=== PATIENT | female | born 1995 | race Caucasian/White ===

== ENCOUNTER 2022-11-23 10:16 | Emergency (ER) | payer OTHER, SELFPAY ==
--- NOTE | ~2022-11-23 | CT_ITS ---
EXAMINATION: CT lumbar spine wo con DATE: 11/23/2022 12:52 INDICATION: Sciatica with left lower limb pain TECHNIQUE: Computed tomography (CT) of the lumbar spine was performed without intravenous contrast. A utomated exposure control and iterative reconstruction technique were employed. The dose-length produ ct was 279.52 mGy-cm. COMPARISON: None FINDINGS: 7 degrees lumbar levocurvature. Sagittal alignment is normal. Vertebral body and disc heights are nor mal. No fractures. Disc heights are normal. Paravertebral soft tissues are unremarkable. 2 cm left ov kavitha cyst/dominant follicle. The following disc levels are specifically discussed: T11-T12: The disc does not extend beyond the endplate margin. There is mild bilateral facet joint ost eoarthritis. There is no neural foraminal stenosis. There is no central canal stenosis. T12-L1: The disc does not extend beyond the endplate margin. There is minimal bilateral facet joint o steoarthritis. There is no neural foraminal stenosis. There is no central canal stenosis. L1-L2: The disc does not extend beyond the endplate margin. There is mild bilateral facet joint osteo arthritis. There is no neural foraminal stenosis. There is no central canal stenosis. L2-L3: Disc is mildly bulging. There is mild left and minimal right facet joint osteoarthritis. There is no neural foraminal stenosis. There is no central canal stenosis. L3-L4: Disc is mildly bulging. There is mild bilateral facet joint osteoarthritis. There is mild bila teral neural foraminal stenosis. There is minimal central canal stenosis. L4-L5: Disc is bulging. There is mild to moderate bilateral facet joint osteoarthritis. There is mild to moderate bilateral neural foraminal stenosis. There is mild central canal stenosis. L5-S1: Disc is mildly bulging. There is mild to moderate bilateral facet joint osteoarthritis. There is mild left neural foraminal stenosis. There is no central canal stenosis. IMPRESSION: 1. Minimal to mild lumbar spondylosis. Reviewed, dictated and finalized at location A.
--- NOTE | ~2022-11-23 | CT_ITS ---
Non-contrast Head CT History: Headache Technique: Axial non-contrast imaging of the brain was performed. Dose reduction technique was used on this scan by utilizing automated exposure control and iterative reconstruction technique. The dose -length product (DLP) was 605.33 mGy-cm. Findings: There is no evidence of intracranial hemorrhage, mass lesion, or acute infarct. Brain par enchyma appears normal. The ventricles and subarachnoid spaces are normal in size. The calvarium ap pears normal. The visualized paranasal sinuses and mastoid air cells are clear. Impression: No significant abnormality seen. Reviewed, dictated and finalized at location . Impression: No significant abnormality seen.
[2022-11-23 10:34] VITALS: BP 142/90; PULSE 90; RESP 16; TEMP 36.8; O2SAT 98
--- NOTE | 2022-11-23 11:39 | ECG_ITS ---
Measurements Intervals [place] Rate: 112 P: 64 [place]: 134 QRS: 77 QRSD: 83 T: 64 QT: 330 QTc: 452 Interpretive Statements SINUS TACHYCARDIA POSSIBLE LEFT ATRIAL ENLARGEMENT [-0.1mV P WAVE IN V1/V2] NONSPECIFIC T-WAVE ABNORMALITY ABNORMAL RHYTHM ECG NO PREVIOUS ECG AVAILABLE FOR COMPARISON Electronically Signed On 11-23-2022 14:32:27 CDT by Jacqueline Sebastian M.D.
--- NOTE | 2022-11-23 11:48 | ED.LOWEXIN ---
HPI - Extremity Injury (Lower) General Chief Complaint: Extremity Injury, Lower <Amie Tan PA-C - Last Filed: 11/23/22 19:13> Stated Complaint: left leg pain <Amie Tan PA-C - Last Filed: 11/23/22 19:13> Time Seen by Provider: 11/23/22 11:00 <Amie Tan PA-C - Last Filed: 11/23/22 19:13> History of Present Illness HPI Narrative: 27-year-old female with a history of hepatitis C and IV drug use reports for evaluation for sciatica symptoms for the past 2 hours. Patient states she has had intermittent burning, numbness and tingling from her left low back that extends into her glutes and posterior thigh for the past year. States in the past 2 months, she started treatment for the symptoms with gabapentin and diclofenac prescribed her PCP. She states that she has found relief with these medications until today. Patient states she was not in her car driving to [place] when she had sudden onset significantly worsening sciatica symptoms. Says she has never felt pain like this before. She describes the pain as a burning, numbness and tingling sensation that extends from the posterior left hip into her glutes and thigh up to her knee. She denies symptoms that go past her knee. She denies saddle anesthesia, bowel or bladder incontinence, bladder retention, dysuria, urinary frequency or urgency. She reports a subjective low-grade fever yesterday and this morning. She denies nausea or vomiting. She is also reporting a generalized headache. Patient is somnolent on exam and states she normally gets sleepy when she is in pain. 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 She denies chest pain or shortness of breath, rash. She denies history of HIV. She has never been treated for hepatitis C. Denies use of immunosuppressants or steroids. Denies recent trauma or injury to her back, surgeries or procedures to her back. <Amie Tan PA-C - Last Filed: 11/23/22 19:13> Related Data Allergies/Adverse Reactions: Allergies Allergy/AdvReac Type Severity Reaction Status Date / Time No Known Allergies Allergy Verified 11/23/22 10:47 <Amie Tan PA-C - Last Filed: 11/23/22 19:13> Review of Systems Review of Systems: CONSTITUTIONAL: See HPI EYES: Denies visual changes, redness, or discharge. ENT: Denies rhinorrhea, congestion, sore throat, or otalgia. CARDIOVASCULAR: Denies chest pain, palpitations, or edema. RESPIRATORY: Denies cough or dyspnea. GASTROINTESTINAL: Denies abdominal pain, nausea, vomiting, or diarrhea. GENITOURINARY: Denies dysuria or hematuria. SKIN: Denies rash or itching. MUSCULOSKELETAL: See HPI NEUROLOGIC: See HPI PSYCHIATRIC: Denies anxiety or depression. <Amie Tan PA-C - Last Filed: 11/23/22 19:13> Exam Narrative: GENERAL: Patient appears uncomfortable. HEAD: Normocephalic EYES: PERRLA, EOMI ENT: Nares clear. Mucous membranes moist. Oropharynx without tonsillar hypertrophy exudate or other lesions. NECK: Supple. No midline cervical spinous tenderness, step-offs or deformities. BACK: No thoracic lumbar spinous tenderness, step-offs or deformities. There is tenderness to the lumbar spine that extends into the left iliac crest and left glute, distally to the posterior thigh up to the popliteal fossa. No overlying skin changes including erythema or ecchymosis, no rash CHEST: No respiratory distress. Clear to auscultation, no adventitious breath sounds. HEART: Regular rate and rhythm. No murmur heard. Normal peripheral pulses. ABDOMEN: Soft, nontender, normal active bowel sounds. No CVA tenderness EXTREMITIES: Full active and passive range of motion of hips, knees and ankle. SKIN: Warm, dry, no rash. NEURO: No focal deficits. Alert and oriented x3. Cranial nerves II through XII grossly intact. Strength 5/5 in BUE. Decreased hip flexion to the left leg when compared to the right. Strength 5/5 bilaterally with
[2022-11-23 12:01] VITALS: BP 139/95; O2SAT 100
[2022-11-23 12:03] LABS: Basophils Percent Auto 0.2 % (0.2-1.2); Eosinophils Percent Auto 0.1 % (0-4.4); Hematocrit 40.3 % (37.0-47.0); Hemoglobin 13.4 g/dL (12.0-15.0); Immature Granulocyte Percent A 0.6 % (0-0.5); Lymphocytes Absolute Auto 0.39 K/mm3 (0.9-3.2); Lymphocytes Percent Auto 2.5 % (18.3-44.2); Mean Corpuscular HGB Conc 33.3 g/dl (32-36); Mean Corpuscular Hemoglobin 27.7 pg (26-34); Mean Corpuscular Volume 83.3 fl (80-100); Mean Platelet Volume 9.6 fl (7.4-10.4); Monocytes Absolute Auto 1.2 K/mm3 (0.1-0.6); Monocytes Percent Auto 7.5 % (2.6-8.5); Neutrophils Absolute Auto 14.1 K/mm3 (1.3-6.7); Neutrophils Percent Auto 89.1 % (45.5-73.1); Platelet Count Result 188 k/mm3 (150-375); Red Blood Count 4.84 M/mm3 (4.2-5.4); Red Cell Distribution Width 12.1 % (11.5-14.5); White Blood Count 15.8 K/mm3 (4.5-10.0)
[2022-11-23 12:08] LABS: Appearance Urine Cloudy (Clear); Bacteria Urine 4+ /hpf; Bilirubin Urine Negative (Negative); Blood Urine Negative (Negative); Color Urine Yellow (Yellow); Glucose Urine UA Negative (Negative); Ketones Urine Negative (Negative); Leukocyte Esterase Ur Negative LEU/UL (Negative); Nitrate Urine Positive (Negative); Non Pathogenic Casts 0-2; Protein Urine Negative (Negative); RBC Urine 0-2 /hpf (0-2); Squamous Epithelial Cell Urine None seen /hpf (Few); Urobilinogen Urine 0.2 mg/dL (<2.0); WBC Urine 0-5 /hpf
[2022-11-23 12:09] LABS: Add Urine Microscopic? YES
[2022-11-23 12:15] LABS: Ethanol < 10 mg/dL (<10)
[2022-11-23 12:16] VITALS: BP 121/76; O2SAT 100
[2022-11-23 12:18] LABS: Alanine Aminotransferase 34 U/L (6-35); Albumin Level 4.6 g/dL (3.5-5.1); Alkaline Phosphatase 69 U/L (38-126); Anion Gap 12 mmol/L (8-16); Aspartate Amino Transferase 32 U/L (14-36); Bilirubin,Total 0.7 mg/dL (0.2-1.3); Blood Urea Nitrogen 8 mg/dL (7-17); CRP 2.9 mg/dL (<1.0); Calcium 9.4 mg/dL (8.4-10.2); Carbon Dioxide 23 mmol/L (22-30); Chloride 96 mmol/L (98-107); Estimated Glomerular Filt Rate > 60; Glucose 149 mg/dL (65-110); Potassium 3.2 mmol/L (3.4-5.0); Sodium 131 mmol/L (137-145)
[2022-11-23 12:24] LABS: Barbiturate Screen Urine Negative (Negative); Benzodiazepines Screen Urine Positive (Negative)
[2022-11-23 12:25] LABS: Cocaine Screen Urine Negative (Negative); Methadone Screen Urine Negative (Negative); Opiate Screen Urine Negative (Negative); Phencyclidine Screen Urine Negative (Negative)
[2022-11-23 12:33] LABS: Cannabinoid Screen Urine Negative (Negative)
[2022-11-23 12:41] LABS: Magnesium 1.7 mg/dL (1.6-2.3)
[2022-11-23 12:50] LABS: Amphetamine Screen Urine Positive (Negative)
[2022-11-23 12:55] VITALS: BP 110/86; O2SAT 100
[2022-11-23 13:01] VITALS: BP 114/74; O2SAT 100
[2022-11-23 13:02] LABS: Erythrocyte Sedimentation Rate 7 mm/hr (0-20)
[2022-11-23] MEDS: SODIUM CHLORIDE 0.9% IV 1,000 ML 999 ML IV CONT (13:12)
[2022-11-23] MEDS: MORPHINE SULFATE (*CRX) 4 MG/ML INJ IV PUSH (13:13)
[2022-11-23] MEDS: POTASSIUM CHLORIDE 20 MEQ PACKET (FOR LIQUID) 40 MEQ PO (13:14)
[2022-11-23 14:14] LABS: Lactic Acid Reflex 1.3 mmol/L (0.7-2.0)
== END 2022-11-23 14:51 | disposition left against medical advice (07) ==
PROVIDERS: Emergency Provider Physician Assistant
DX: M47.26 Other spondylosis with radiculopathy, lumbar region (principal); F15.90 Other stimulant use, unspecified, uncomplicated; F13.90 Sedative, hypnotic, or anxiolytic use, unspecified, uncomplicated; B19.20 Unspecified viral hepatitis C without hepatic coma; R00.0 Tachycardia, unspecified; R94.31 Abnormal electrocardiogram [ECG] [EKG]
CPT/HCPCS: 36415; 70450; 72131; 80053; 80307; 81001; 81025; 83605; 83735; 85025; 85652; 86140; 87040; 93005; 96361; 96374; 99284; A9270; J2270; J7030